=== PATIENT | male | born 1950 | race Caucasian/White ===

== ENCOUNTER 2017-05-11 21:11 | Emergency (ER) | payer OTHER, MEDICARE, BC ==
[~2017-05-11] VITALS: Ht 182.9 cm; Wt 95.0 kg
[~2017-05-11 21:11] MED LIST: ADVAI250I PO; ASPI81TA82 PO; CYCL-36 PO; DIAZ10TA PO; DULO20 PO; GABA300C3 PO; HCTZ25TA PO; LORA-392 PO; METF1000 PO; MSIR15 PO; PRED10 PO; SIMV40TA PO
[2017-05-11 21:13] VITALS: BP 138/86; PULSE 88; RESP 16; TEMP 98.6; O2SAT 97
[2017-05-11] MEDS ORDERED: SIMV40TA PO (21:55)
[2017-05-11] MEDS ORDERED: ASPI81CH CHEW (21:55)
[2017-05-11] MEDS ORDERED: LORA2TAB7 PO (21:55)
[2017-05-11] MEDS ORDERED: TRIA1TAB5 PO (21:55)
[2017-05-11] MEDS ORDERED: CYCL1TAB29 PO (21:55)
[2017-05-11] MEDS ORDERED: METF500T PO (21:55)
[2017-05-11] MEDS ORDERED: PRED10 PO (21:55)
[2017-05-11] MEDS ORDERED: DULO20 PO (21:55)
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
[2017-05-11] MEDS ORDERED: KETOROLAC TROMETHAMINE 30 MG/ML (IVP) VIAL IVP ONE (23:00)
[2017-05-11 23:27] LABS: AUTOMATED NEUTROPHIL # 7.5 TH/MM3 (1.8-7.7); BASOPHIL % 0.4 % (0.0-2.0); EOSINOPHIL # 0.5 TH/MM3 (0-0.4); EOSINOPHIL % 4.1 % (0.0-4.0); HEMATOCRIT 40.6 % (39.0-51.0); HEMO FLAGS DIFF FINAL; LYMPH % 19.6 % (9.0-44.0); LYMPHOCYTE # 2.3 TH/MM3 (1.0-4.8); MEAN CELL VOLUME 94.2 FL (80.0-100.0); MEAN CORPUSCULAR HEMOGLOBIN 31.4 PG (27.0-34.0); MEAN CORPUSCULAR HGB CONC 33.4 % (32.0-36.0); MONO % 11.7 % (0.0-8.0); NEUT % 64.2 % (16.0-70.0); PLATELET COUNT 309 TH/MM3 (150-450); RED BLOOD COUNT 4.31 MIL/MM3 (4.50-5.90); RED CELL DISTRIBUTION WIDTH 12.9 % (11.6-17.2); WHITE BLOOD COUNT 11.7 TH/MM3 (4.0-11.0)
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
[2017-05-12] MEDS ORDERED: HYDR-3533 PO (00:02)
== END 2017-05-12 00:35 | disposition home or self-care (01) ==
LOC: NEPE 21:11
DX: M25.532 Pain in left wrist (principal); E11.610 Type 2 diabetes mellitus with diabetic neuropathic arthropathy; Z79.82 Long term (current) use of aspirin; Z79.899 Other long term (current) drug therapy
CPT/HCPCS: 73110; 85025; 85652; 86140; 96374; 99284; J1885

== ENCOUNTER → 2017-09-25 | Day surgery (SDC) | payer MEDICARE, BC ==
[~2017-09-25] VITALS: Ht 182.9 cm; Wt 97.7 kg
[~2017-09-25] MED LIST changes: -ADVAI250I PO; +ASPI-516 CHEW; -ASPI81TA82 PO; +BUPIVACAINE HCL PF 0.5% 30 ML VIAL ONE; +CEPH-460 PO; +CHLORHEXIDINE GLUCONATE 2 % 1 PACK (2 CLOTHS) TOPICAL PRN; -CYCL-36 PO; +CYCL10TA PO; -DIAZ10TA PO; -GABA300C3 PO; -HCTZ25TA PO; +HYDR-3288 PO; +HYDR-3516 PO; +LACTATED RINGER'S 1000 ML IV PRN; +LIDOCAINE HCL 2% 50 ML VIAL ONE; -LORA-392 PO; +LORA2TAB7 PO; -METF1000 PO; +METF500T PO; +METOPROLOL TARTRATE 25 MG TAB PO PRN; +MIDAZOLAM HCL 2 MG/2 ML VIAL ONE; -MSIR15 PO; +NEOMYCIN/POLYMYXIN 1 ML G.U. IRRIGANT ONE; +POVIDONE IODINE 5% (ANTISEPSIS KIT) 4 APPLICATIONS EACH NARE PRN; +SODIUM CHLORID 0.9% 500 ML IV PRN; +TRIA1TAB5 PO; +ceFAZolin 1,000 MG/NS 100 ML IV SCH
[2017-09-25 10:15] VITALS: TEMP 98
[2017-09-25 10:16] VITALS: BP 122/72; PULSE 74; RESP 16; O2SAT 100
--- NOTE | 2017-09-25 14:05 | EKG ---
Date Performed: 09/25/2017 Time Performed: 08:39:30 PTAGE: 67 years EKG: Sinus rhythm RIGHT BUNDLE BRANCH BLOCK ABNORMAL ECG NO PREVIOUS TRACING DOCTOR: Best Gil Interpretating Date/Time 09/25/2017 14:05:01
--- NOTE | 2017-09-26 00:41 | MP ---
cc: AQUILINO HARRINGTON III, M.D. DATE OF SURGERY: 09/25/2017 PREOPERATIVE DIAGNOSIS: Left carpal tunnel syndrome. PROCEDURE Left open carpal tunnel release POSTOPERATIVE DIAGNOSIS: Left carpal tunnel syndrome. SURGEON Aquilino Harrington III, MD PROCEDURE The patient was brought to the operating room and placed supine on the operating room table. After the correct site and side of surgery was verified by members of each team in the room multiple times, including patient and myself, and after adequate preoperative markings, preoperative written consent were verified by everyone, and after adequate preoperative time out was performed to everyone's satisfaction, and after adequate IV sedation had been achieved, the left upper extremity was prepped and draped in traditional sterile surgical fashion. A 50/50 mixture of 2% plain lidocaine and 0.5% plain Marcaine was infiltrated in the skin and subcutaneous tissue at the base of the palm. The limb was exsanguinated using an Rayshawn wrap. A highly placed well-padded axillary tourniquet was inflated to 200 mmHg for a total of 9 minutes. A longitudinally oriented incision in the base of the palm was made and carried down through skin and subcutaneous tissue. Blunt dissection was performed. The transverse carpal ligament was identified and divided in the midline in its entirety under loupe visualization on the ulnar side. Exploration of the carpal tunnel revealed its contents were all in continuity. There was a noticeable rebound of the median nerve upon release. There were no other anatomic abnormalities or mass effect. Thorough irrigation with saline was performed for one liter and the skin edges reapproximated using interrupted and running 4-0 nylon sutures. The hand and arm were thoroughly cleansed and dried. Betadine Adaptic dressings were applied atop of the wounds followed by a bulky soft dressing. The axillary tourniquet was released. The hand and all fingers became immediately soft, pink and warm, with brisk capillary refill of less than two seconds. The patient was awakened from anesthesia and transported to the Post-Anesthesia Care Unit awake and in stable condition. Sponge, needle and instrument counts were correct at the end of the case as reported by the nurses in the room. Aquilino Harrington III, MD LCB/DAWNA /9:58 AM /12:14 AM
== END | disposition home or self-care (01) ==
LOC: PHSDC 06:52
PROVIDERS: ATTEND Orthopaedic Surgery Hand Surgery
DX: G56.02 Carpal tunnel syndrome, left upper limb (principal); R94.31 Abnormal electrocardiogram [ECG] [EKG]
CPT/HCPCS: 01810; 64721; 93005; J0690; J2250; J3010; J7120